=== PATIENT | male | born 1940 | race Caucasian/White ===

== ENCOUNTER 2019-02-12 13:04 | Emergency (ER) | payer MEDICARE, BC ==
[2019-02-12 13:09] VITALS: BP 136/85
--- NOTE | 2019-02-12 13:21 | UC ---
Laceration HPI - HPI Summary HPI Summary: 78 y/o male presents to the urgent care c/o Rt forearm skin tears s/p falling against and kearney arout 1 hrs ago. pt reports he is taking baby ASA and his skin tear still bleeding. Pt reports he was getting prepare to cut some bushes w / and chain saw and tripped and fell on top of a kearney and cut his Rt fore arm. Pt is UTD w/ Tdap on 11/2018. Pt denies pain and can move his RT extremity w/o any problem, denies numbness or tingling sensation over Rt arm, SOB, chest pain , abdominal pain, N/V/D. - History Of Current Complaint Chief Complaint: UCSkin Stated Complaint: ARM LACERATION Time Seen by Provider: 02/12/19 13:18 Hx Obtained From: Patient Laceration Location: Arm - Rt forearm w/ 6 skin tears s/p fall agains a kearney Mechanism Of Injury: Sharp Trauma Onset/Duration: Sudden Onset, Still Present Severity: Mild Pain Intensity: 1 Pain Scale Used: 0-10 Numeric Aggravating Factors: Other: - touch still bleeding Related History: Dominant Hand Right - Allergies/Home Medications Allergies/Adverse Reactions: Allergies Allergy/AdvReac Type Severity Reaction Status Date / Time Sulfa (Sulfonamide Allergy Fever Verified 02/12/19 13:05 Antibiotics) sulfamethoxazole Allergy Fever Verified 02/12/19 13:10 [From Bactrim] trimethoprim [From Bactrim] Allergy Fever Verified 02/12/19 13:10 Home Medications: Home Medications Colesevelam HCl [Welchol] 1 tab PO DAILY 02/12/19 [History Confirmed 02/12/19] Lansoprazole CAP (NF) [Prevacid CAP (NF)] 30 mg PO DAILY 02/12/19 [History Confirmed 02/12/19] Leflunomide (NF) [Arava (Nf)] 1 tab PO DAILY 02/12/19 [History Confirmed ] Metoprolol Tartrate TAB* [Lopressor TAB*] 1 tab PO DAILY 02/12/19 [History Confirmed 02/12/19] PMH/Surg Hx/FS Hx/Imm Hx Previously Healthy: Yes Other Endocrine History: RA Cardiovascular History: Hypertension GI/ History: Gastroesophageal Reflux - Surgical History Surgical History: Yes Surgery Procedure, Year, and Place: appendectomy, cholecystectomy, bilat shoulder surgeries, L total knee replacement, CABG-quad, carpal tunnel, bilat cataracts, skin ca removed R shoulder - Family History Known Family History: Positive: Cardiac Disease, Hypertension - Social History Occupation: Retired Lives: With Family Alcohol Use: Occasionally Substance Use Type: None Smoking Status (MU): Never Smoked Tobacco - Immunization History Hx Tetanus, Diphtheria Vaccination: Yes - 11/2018 Review of Systems All Other Systems Reviewed And Are Negative: Yes Constitutional: Positive: Negative Skin: Positive: Other - 6 skin tears in the Rt fore arm s/p laceration w/ a kearney Eyes: Positive: Negative ENT: Positive: Negative Respiratory: Positive: Negative Cardiovascular: Positive: Negative Gastrointestinal: Positive: Negative Genitourinary: Positive: Negative Motor: Positive: Negative Neurovascular: Positive: Negative Musculoskeletal: Positive: Other: - Rt forearm pain s/p skin tear Neurological: Positive: Negative Psychological: Positive: Negative Is Patient Immunocompromised?: No Physical Exam - Summary Physical Exam Summary: Vital Signs Reviewed: Yes General: well developed, well nourished old male sitting in the examining table w/o any apparent distress Eye Exam: Normal Eyes: Positive: Conjunctiva Clear - PERRLA, EOMI, fundi grossly normal ENT: Positive: Normal ENT inspection, Hearing grossly normal, Pharynx normal, TMs normal Neck: Positive: Supple, Nontender, No Lymphadenopathy Respiratory: Positive: Chest non-tender, Lungs clear, Normal breath sounds, No respiratory distress Cardiovascular: Positive: RRR, No Murmur, Pulses Normal, Brisk Capillary Refill Abdomen Description: Positive: Nontender, No Organomegaly, Soft. Negative: CVA Tenderness (R), CVA Tenderness (L) Bowel Sounds: Positive: Present Musculoskeletal: Positive: Strength Intact, ROM Intact, No Edema Neurological: Positive: Alert, Muscle Tone Normal Psychological Exam: Normal Skin: Positive: dorsal side of RT fore arm w/ 6 skin tears ranging from [id number] to [id number] in size frm the RT wrist to elbow near, still mildly bleeding, no foreign body observed. mild tenderness to palpation, mild ecchymosis around elbow. FROM of RT arm, sensation intact, capillary refill brisk, and pulses WNL. Triage Information Reviewed: Yes Vital Signs: Initial Vital Signs Temp 97 F 02/12/19 13:07 Pulse 100 02/12/19 13:07 Resp 19 02/12/19 13:07 BP 136/85 02/12/19 13:07 Pulse Ox 100 02/12/19 13:07 Laceration Repair - Laceration Repair 1 Description: Irregular - 6 skin tear of different sizes and shapes in the dorsal side of Rt forearm Laceration Size After Repair: Length (cm) - some of [id number] and others [id number] in size Modified For Repair: No Cleansing Completed Via Routine Prep: Yes Irrigation With Pressure Irrigation Device: Yes Closure Material: Skin Adhesive - just Gelfoam applied over skin tears to stop bleeding Closure Method: Single Layer Suture Of: Skin Laceration Course/Dx - Course/Dx Course Of Treatment: 78 y/o male presents to the urgent care c/o Rt forearm skin tears s/p falling against and kearney arout 1 hrs ago. pt reports he is taking baby ASA and his skin tear still bleeding. Pt reports he was getting prepare to cut some bushes w / and chain saw and tripped and fell on top of a kearney and cut his Rt fore arm. Pt is UTD w/ Tdap on 11/2018. Pt denies pain and can move his RT extremity w/o any problem, denies numbness or tingling sensation over Rt arm, SOB, chest pain , abdominal pain, N/V/D. Pt is hemodynamically stable, A&OX3, Vitals: WNL. PT w / dorsal side of RT fore arm w/ 6 skin tears ranging from [id number] to [id number] in size frm the RT wrist to elbow near, still mildly bleeding, no foreign body observed. mild tenderness to palpation, mild ecchymosis around elbow. FROM of RT arm, sensation intact, capillary refill brisk, and pulses WNL on examination. LACERATION PROCEDURE NOTE: . Copious irrigation was done with saline and the wound explored. There was no FB or deep structure injury noted. wound cleaned w/ Iodine swabs. Multiple skin tearsn approximated and gel foam applied over the tears to stop bleeding. Wound dressed w/ sterile gauze. pt given Shoulder sling to keep RT forearm elevated to avoid swelling. Pt tolerated the procedure well without adverse effects. Neurovascular intact and FROM of Rt arm. Pt UTD w/ Tdap givne in 11/2018 by PCP. Pt Rx Keflex PO and Bacitrain oint as directed below. advised if any signs of infection develop to immediately to go to the Er for further management. D/C instructions explained. Pt understood and agreed w/ plan of care and left the clinic ambulating A&Ox3. - Differential Dx - Laceration/Wound Differental Diagnoses: Abrasion, Compartment Syndrome, Dehiscence, Fracture, Laceration, Puncture Wound, Tendon Laceration - Diagnosis Provider Diagnosis: Skin tear of right forearm without complication Discharge ED - Sign-Out/Discharge Documenting (check all that apply): Patient Departure - D/C home All imaging exams completed and their final reports reviewed: No Studies - Discharge Plan Condition: Stable Disposition: HOME Prescriptions: Bacitracin OINTMENT* 1 applic TOPICAL BID #1 tube Cephalexin CAP* [Keflex CAP*] 500 mg PO TID #21 cap Patient Education Materials: Skin Tear (ED) Referrals: Jay Rodriguez MD [Primary Care Provider] - 3 Days Additional Instructions: 1-Please Take Keflex PO antibiotic full course to prevent infection. 2 when the Gel foam fall off you can apply topical Bacitracin oint antibiotic over the wound as directed. Keep wound clean and dry 3- Keep forearm elevated w/ shoulder sling to decrease swelling. 3-Take Tylenol PO q6-8hrs prn for pain or swelling. 4- If you develop fever or redness around your wound despite the antibiotic please go to the ER immediately or return to the Urgent care. - Billing Disposition and Condition Condition: STABLE Disposition: Home
[2019-02-12] MEDS ORDERED: Gelfoam Sponge SIZE 100* SPONGE TOPICAL ONE ×2 (13:37→13:41)
[2019-02-12] MEDS ORDERED: Gelfoam 12-7 ADSORBABL SPONGE* 1 EA SPONGE TOPICAL ONE (13:44)
== END 2019-02-12 14:17 | disposition home or self-care (01) ==
LOC: UCEAST 13:04
DX: S51.811A Laceration without foreign body of right forearm, initial encounter (principal); W18.30XA Fall on same level, unspecified, initial encounter; Y92.9 Unspecified place or not applicable; M06.9 Rheumatoid arthritis, unspecified; I10 Essential (primary) hypertension; K21.9 Gastro-esophageal reflux disease without esophagitis; Z88.2 Allergy status to sulfonamides
CPT/HCPCS: 99213; A9270-GY; G0463

== ENCOUNTER 2020-11-21 14:41 | Inpatient (IN) ==
[2020-11-21 15:28] LABS: ABS Eosinophils 0.1 10^3/ul (0-0.6); ABS Monocytes 0.4 10^3/ul (0-0.8); ABS Neutrophils 2.7 10^3/ul (1.5-7.7); Eosinophil % 3.3 %; Hematocrit 39 % (42-52); Hemoglobin 13.3 g/dL (14.0-18.0); Lymphocyte % 22.8 %; Mean Corpuscular HGB Conc 34 g/dL (31-36); Mean Corpuscular Hemoglobin 35 pg (27-31); Mean Corpuscular Volume 103 fL (80-94); Mean Platelet Volume 8.4 fL (7.4-10.4); Platelet Count 124 10^3/uL (150-450); Red Blood Count 3.78 10^6 /uL (4.18-5.48); Red Cell Distribution Width 13 % (10-15); White Blood Count 4.3 10^3/uL (3.5-10.8)
[2020-11-21 15:46] LABS: ALT 38 U/L (7-52); AST 33 U/L (13-39); Albumin 4.3 g/dL (3.2-5.2); Albumin/Globulin Ratio 1.7 (1-3); Alkaline Phosphatase 62 U/L (35-149); Anion Gap 5 mmol/L (2-11); Blood Urea Nitrogen 19 mg/dL (6-24); CO2 Carbon Dioxide 26 mmol/L (22-32); Calcium 9.2 mg/dL (8.6-10.3); Chloride 106 mmol/L (101-111); EGFR African American 83.1 (>60); EGFR Non-African American 68.7 (>60); Globulin 2.5 g/dL (2-4); Glucose 166 mg/dL (70-100); Potassium 4.5 mmol/L (3.5-5.0); Sodium 137 mmol/L (135-145); Total Protein 6.8 g/dL (6.4-8.9)
[2020-11-21 15:49] LABS: Troponin I 0.04 ng/mL (<0.03)
[2020-11-21] MEDS ORDERED: Enoxaparin 80 MG/0.8 ML SYR SUBCUT ONE (15:51)
[2020-11-21] MEDS ORDERED: Morphine 2 MG/ML SYRINGE IV PRN (17:31)
[2020-11-21 18:32] LABS: Cholesterol 108 mg/dL; HDL Cholesterol 49.2 mg/dL; LDL Cholesterol 38 mg/dL; Triglycerides 104 mg/dL
[2020-11-21 19:05] LABS: Troponin I 0.04 ng/mL (<0.03)
[2020-11-21] MEDS: Mometasone/Formoter 100/5 MDI INH SCH (21:48)
[2020-11-21 22:12] LABS: Troponin I 0.05 ng/mL (<0.03)
[2020-11-22] MEDS: CMCS: Dorzolamide/Timolol OPTH (NF) 10 ML BOT BOTH EYES SCH ×3 (03:28→21:02)
[2020-11-22] MEDS: Mometasone/Formoter 100/5 MDI INH SCH ×2 (07:44→19:44)
[2020-11-22] MEDS: Aspirin EC 81 mg TAB.EC (enteric coated) PO SCH (08:44)
[2020-11-22] MEDS: CMCS:Alfuzosin ER 10 mg TAB.ER (NF) 10 MG TAB.ER PO SCH (08:45)
[2020-11-22] MEDS ORDERED: LEFLUNOMIDE 20 MG PO SCH (09:00)
[2020-11-22] MEDS: CMCS:Leflunomide 10 mg TAB (NF) PO SCH (10:24)
[2020-11-22 10:38] LABS: Magnesium 1.9 mg/dL (1.9-2.7)
[2020-11-22 11:17] LABS: Troponin I 0.04 ng/mL (<0.03)
[2020-11-22] MEDS ORDERED: Perflutren Lipid Microsphere 3 ML VIAL ONE (13:35)
[2020-11-22] MEDS: Heparin 5000 UNITS/ML 1 mL VIAL SUBCUT SCH (21:03)
[2020-11-23] MEDS: Heparin 5000 UNITS/ML 1 mL VIAL SUBCUT SCH ×2 (05:53→16:22)
[2020-11-23] MEDS ORDERED: Regadenoson 0.4 MG/5 ML SYRINGE ONE (07:37)
[2020-11-23] MEDS ORDERED: Aminophylline 25 MG/ML VIAL ONE (07:37)
[2020-11-23] MEDS: CMCS: Dorzolamide/Timolol OPTH (NF) 10 ML BOT BOTH EYES SCH (08:58)
[2020-11-23] MEDS: Mometasone/Formoter 100/5 MDI INH SCH (11:52)
[2020-11-23] MEDS: Aspirin EC 81 mg TAB.EC (enteric coated) PO SCH (16:20)
[2020-11-23] MEDS: CMCS:Alfuzosin ER 10 mg TAB.ER (NF) 10 MG TAB.ER PO SCH (16:20)
[2020-11-23] MEDS: CMCS:Leflunomide 10 mg TAB (NF) PO SCH (16:22)
[2020-11-23 16:37] VITALS: BP 125/71
== END 2020-11-23 17:36 | disposition home or self-care (01) | DRG 313 ==
LOC: ED 14:41 → MEDTELE 14:41
PROVIDERS: ADMIT Internal Medicine; ATTEND Internal Medicine

== ENCOUNTER 2021-04-08 14:35 | Observation (INO) ==
[2021-04-08 18:49] LABS: Albumin 4.2 g/dL (3.2-5.2); Anion Gap 7 mmol/L (2-11); CO2 Carbon Dioxide 22 mmol/L (22-32); Calcium 9.4 mg/dL (8.6-10.3); Chloride 109 mmol/L (101-111); Potassium 4.5 mmol/L (3.5-5.0); Sodium 138 mmol/L (135-145)
[2021-04-08 18:55] LABS: ALT 22 U/L (7-52); AST 27 U/L (13-39); Albumin/Globulin Ratio 1.6 (1-3); Alkaline Phosphatase 61 U/L (35-149); Blood Urea Nitrogen 16 mg/dL (6-24); Globulin 2.7 g/dL (2-4); Glucose 100 mg/dL (70-100); Total Protein 6.9 g/dL (6.4-8.9)
[2021-04-08 19:30] LABS: ABS Eosinophils 0.2 10^3/ul (0-0.6); ABS Lymphocytes 0.8 10^3/ul (1.0-4.8); ABS Monocytes 0.5 10^3/ul (0-0.8); ABS Neutrophils 2.5 10^3/ul (1.5-7.7); Eosinophil % 4.6 %; Hematocrit 38 % (42-52); Hemoglobin 12.9 g/dL (14.0-18.0); Lymphocyte % 20.7 %; Mean Corpuscular HGB Conc 34 g/dL (31-36); Mean Corpuscular Hemoglobin 35 pg (27-31); Mean Corpuscular Volume 102 fL (80-94); Mean Platelet Volume 7.5 fL (7.4-10.4); Nucleated Red Blood Cells % 0.1; Platelet Count 107 10^3/uL (150-450); Red Blood Count 3.66 10^6 /uL (4.18-5.48); Red Cell Distribution Width 14 % (10-15)
[2021-04-08 19:52] LABS: INR 1.31 (0.86-1.15)
[2021-04-08 21:11] LABS: Troponin I 0.03 ng/mL (<0.03)
[2021-04-08] MEDS ORDERED: Enoxaparin 80 MG/0.8 ML SYR SUBCUT ONE (21:20)
[2021-04-08 22:50] LABS: Troponin I 0.03 ng/mL (<0.03)
[2021-04-08 22:52] LABS: Rapid COVID-19 Molecular Undetected (Undetected)
[2021-04-08] MEDS ORDERED: Albuterol HFA INHALER 8 gm MDI INH PRN (23:54)
[2021-04-09 00:24] LABS: Magnesium 2.1 mg/dL (1.9-2.7)
[2021-04-09 02:03] LABS: Troponin I 0.03 ng/mL (<0.03)
[2021-04-09 04:48] LABS: ABS Eosinophils 0.2 10^3/ul (0-0.6); ABS Lymphocytes 1.1 10^3/ul (1.0-4.8); ABS Monocytes 0.6 10^3/ul (0-0.8); ABS Neutrophils 2.1 10^3/ul (1.5-7.7); Eosinophil % 4.9 %; Hematocrit 38 % (42-52); Hemoglobin 13.1 g/dL (14.0-18.0); Lymphocyte % 27.9 %; Mean Corpuscular HGB Conc 35 g/dL (31-36); Mean Corpuscular Hemoglobin 36 pg (27-31); Mean Corpuscular Volume 103 fL (80-94); Mean Platelet Volume 7.2 fL (7.4-10.4); Nucleated Red Blood Cells % 0.1; Platelet Count 107 10^3/uL (150-450); Red Blood Count 3.69 10^6 /uL (4.18-5.48); Red Cell Distribution Width 14 % (10-15); White Blood Count 3.9 10^3/uL (3.5-10.8)
[2021-04-09 05:04] LABS: INR 1.34 (0.86-1.15)
[2021-04-09 05:11] LABS: Calcium 9.5 mg/dL (8.6-10.3); Potassium 3.7 mmol/L (3.5-5.0)
[2021-04-09] MEDS ORDERED: NS 0.9% 1000 ml BAG 1,000 ML IV SCH (07:00)
[2021-04-09] MEDS ORDERED: Potassium Chlor 10 meq TAB PO ONE (07:23)
[2021-04-09 08:03] LABS: Magnesium 2.1 mg/dL (1.9-2.7)
[2021-04-09] MEDS ORDERED: Flumazenil 0.5 mg/5 ml 0.1 MG/ML 5 ml VIAL ONE (08:12)
[2021-04-09] MEDS ORDERED: Midazolam 5 mg/5 ml VIAL 1 mg/ml 5 ml VIAL (5 mg) ONE (08:12)
[2021-04-09] MEDS ORDERED: Naloxone 0.4 mg VIAL 0.4 mg/ml 1 ml VIAL ONE (08:12)
[2021-04-09] MEDS ORDERED: fentaNYL 100 mcg/2 ml 50 MCG/ML VIAL ONE (08:12)
[2021-04-09] MEDS ORDERED: Aspirin EC 81 mg TAB.EC (enteric coated) PO SCH (09:00)
[2021-04-09] MEDS ORDERED: COLESTIPOL 1 GM PO SCH (09:00)
[2021-04-09] MEDS ORDERED: Multivitamins/Minerals TAB PO SCH (09:00)
[2021-04-09] MEDS ORDERED: Isosorbide Mononit ER 30mg TAB PO SCH (09:00)
[2021-04-09] MEDS ORDERED: Mometasone/Formoter 100/5 MDI INH SCH (09:00)
[2021-04-09] MEDS ORDERED: CMCS: Dorzolamide/Timolol OPTH (NF) 10 ML BOT BOTH EYES SCH (09:00)
[2021-04-09] MEDS ORDERED: Enoxaparin 80 MG/0.8 ML SYR SUBCUT SCH (10:30)
[2021-04-09 12:15] VITALS: BP 107/61
== END 2021-04-09 12:45 | disposition home or self-care (01) ==
LOC: ED 14:35 → MEDTELE 14:35
PROVIDERS: ADMIT Internal Medicine; ATTEND Internal Medicine